=== PATIENT | female | born 1960 | race Caucasian/White ===

== ENCOUNTER 2018-03-02 23:12 | Emergency (ER) | payer OTHER ==
[~2018-03-02] VITALS: Ht 162.6 cm; Wt 74.5 kg
[~2018-03-02 23:12] MED LIST: ATEN50TA PO
[2018-03-02] MEDS ORDERED: PARO20TA24 PO (23:32)
[2018-03-02] MEDS ORDERED: LINA1TAB3 PO (23:32)
[2018-03-02] MEDS ORDERED: TELM40 PO (23:32)
[2018-03-02] MEDS ORDERED: ALPR0.255 PO (23:32)
[2018-03-03] MEDS ORDERED: PredniSONE 20 MG TABLET PO ONE (00:45)
[2018-03-03] MEDS ORDERED: DiphenhydrAMINE HCL 25 MG CAPSULE PO ONE (00:45)
[2018-03-03 01:29] VITALS: BP 146/86
== END 2018-03-03 02:10 | disposition home or self-care (01) ==
LOC: EMS 23:12
DX: R20.0 Anesthesia of skin (principal); R20.2 Paresthesia of skin; T39.1X5A Adverse effect of 4-Aminophenol derivatives, initial encounter; F41.9 Anxiety disorder, unspecified; F32.9 Major depressive disorder, single episode, unspecified; E11.9 Type 2 diabetes mellitus without complications; I10 Essential (primary) hypertension; Z79.84 Long term (current) use of oral hypoglycemic drugs; Z88.0 Allergy status to penicillin; Z79.899 Other long term (current) drug therapy; Y92.89 Other specified places as the place of occurrence of the external cause
CPT/HCPCS: 99283; J7512

== ENCOUNTER 2022-03-04 21:35 | Emergency (ER) | payer OTHER ==
[~2022-03-04] VITALS: Ht 162.6 cm; Wt 67.7 kg
[~2022-03-04 21:35] MED LIST changes: +ALPR-705 PO; -ATEN50TA PO; +LINA1TAB3 PO; +PARO-38 PO; +TELM40 PO
[2022-03-05] MEDS ORDERED: LORazepam 1 MG TABLET PO ONE
[2022-03-05] MEDS ORDERED: CloNIDine HCL 0.1 MG TABLET PO ONE
[2022-03-05 00:31] LABS: BASOPHILS % (AUTO) 0.5 % (0.0-2.0); EOSINOPHILS % (AUTO) 2.4 % (1.0-6.0); HEMATOCRIT 38.8 % (36-46); HEMOGLOBIN 12.9 g/dL (12.0-16.0); LYMPHOCYTES # (AUTO) 3.5 K/uL (1.0-4.8); LYMPHOCYTES % (AUTO) 34.1 % (22.0-44.0); MEAN CORPUSCULAR HEMOGLOBIN 30.2 pg (26.0-34.0); MEAN CORPUSCULAR HGB CONC 33.4 G/dL (31.0-37.0); MEAN CORPUSCULAR VOLUME 91 fL (80-100); MONOCYTES # (AUTO) 0.6 K/uL (0.1-1.0); MONOCYTES % (AUTO) 5.5 % (2.0-9.0); NEUTROPHILS # (AUTO) 5.9 K/uL (1.8-7.7); NEUTROPHILS % (AUTO) 57.5 % (40.0-70.0); PLATELET COUNT (AUTO) 316 K/uL (150-450); RED BLOOD CELL COUNT(AUTO) 4.28 MIL/uL (4.00-5.20); RED CELL DISTRIBUTION WIDTH 13.2 % (11.5-14.5)
[2022-03-05] MEDS ORDERED: SITA1TBM4 PO (00:32)
[2022-03-05 00:38] LABS: ANION GAP 9 mmol/L (8-16); CARBON DIOXIDE 27 mmol/L (22-29); CHLORIDE 104 mmol/L (98-107); CREATININE 0.75 mg/dL (0.60-1.30); GLOMERULAR FILTR. RATE CALC > 60 mL/min (>60); GLUCOSE,RANDOM 145 mg/dL (70-110); POTASSIUM 3.8 mmol/L (3.5-5.1); SODIUM SERUM 140 mmol/L (136-145); UREA NITROGEN, BLOOD 12 mg/dL (7-18)
[2022-03-05 00:43] LABS: PROTHROMBIN TIME 10.7 SEC (9.4-11.6)
[2022-03-05 00:49] LABS: ALANINE AMINOTRANSFERASE 51 U/L (12-78); ALBUMIN 3.7 g/dL (3.4-5.0); ALKALINE PHOSPHATASE 85 U/L (46-116); ASPARTATE AMINOTRANSFERASE 31 U/L (15-37); BILIRUBIN,TOTAL 0.2 mg/dL (0.1-1.0); CREATINE KINASE, TOTAL ONLY 76 U/L (26-192)
[2022-03-05 00:51] LABS: B-TYPE NATRIURETIC PEPTIDE 41 pg/mL (0-100)
[2022-03-05 03:03] VITALS: BP 130/80
== END 2022-03-05 03:19 | disposition home or self-care (01) ==
LOC: EMS 21:36
DX: I10 Essential (primary) hypertension (principal); E11.9 Type 2 diabetes mellitus without complications; E78.00 Pure hypercholesterolemia, unspecified; F32.9 Major depressive disorder, single episode, unspecified; F41.9 Anxiety disorder, unspecified; F10.20 Alcohol dependence, uncomplicated; F17.210 Nicotine dependence, cigarettes, uncomplicated; Z88.0 Allergy status to penicillin
CPT/HCPCS: 71045; 80053; 82550; 82962; 83880; 84484; 85025; 85610; 85730; 93005; 99285; 36415-L1; 36415-TC